=== PATIENT | female | born 1985 | race Two or more races ===

== ENCOUNTER 2025-02-22 08:57 | Inpatient (IN) | payer OTHER ==
[~2025-02-22] VITALS: Ht 160 cm; Wt 63.0 kg
--- NOTE | 2025-02-22 09:32 | NUR ---
PACIENTEN ALERTA Y ORIENTADA X 3. REFIERE DESDE EL JUEVES DOLOR DE ESPLADA BAJA, FUE TRATADA Y MEDICADA ELIAS INDCIA LUEGO COMENZO CON ARDOR Y FIEBRE AL COMENZAR ANTIBIOTICOS PARA TRATAR INFECCION.
[2025-02-22] MEDS ORDERED: CIPRO500 MG (09:34)
[2025-02-22] MEDS ORDERED: CEFTRIAXONE SODIUM 1,000 MG VIAL IV ONE (10:00)
[2025-02-22] MEDS ORDERED: KETOROLAC TROMETHAMINE 30 MG VIAL IU ONE (10:00)
[2025-02-22] MEDS ORDERED: FAMOTIDINE/PF 20 MG/2 ML VIAL IV ONE (10:00)
--- NOTE | 2025-02-22 10:20 | NUR ---
SE ORIENTA A PACIENTE SOBRE ORDEN MEDICA LA MISMA REFIERE ENTENDER Y ACEPTA.
[2025-02-22 10:37] LABS: ALT/SGPT 28.0 U/L (12-78); AST/SGOT 17.0 U/L (15-37); BILIRUBIN TOTAL 0.25 mg/dL (0.3-1.2); BUN CREA RATIO 7.0 (7.0-25.0); CREATININE SERUM 0.86 mg/dL (0.55-1.02); GFR 73.85; GLOBULINA 4.1 G/DL (2.4-3.5); GLUCOSE FASTING 148.0 mg/dL (65-100); OSMOLALITY SERUM 274.0 MOSM/KG (275-295)
[2025-02-22 10:58] LABS: BASO % 0.7 % (0.1-1.2); EOS # 0.01 (0.04-0.54); EOS % 0.1 % (0.7-7.0); LYMPH # 0.83 (1.18-3.74); LYMPH % 12.1 % (19.3-53.1); MEAN PLATELET VOLUME 10.70 fl (9.4-12.4); MONO # 0.58 (0.24-0.82); MONO % 8.4 % (4.7-12.5); NEUT # 5.38 (1.56-6.13); NEUT % 78.3 % (34.0-71.1); RED CELL DISTRIBUTION WIDTH 15.9 % (11.6-14.4)
[2025-02-22 12:17] LABS: URINE APPEARANCE Clear; URINE BILIRRUBIN Negative (NEGATIVE); URINE BLOOD Small; URINE COLOR Yellow; URINE GLUCOSE Negative (NEGATIVE); URINE KETONE 15 (NEGATIVE); URINE LEUKOCYTE Moderate; URINE NITRATE Negative; URINE PROTEIN 30 (NEGATIVE); URINE UROBILINOGEN 0.2 E.U./dl
[2025-02-22 12:22] LABS: URINE BACTERIA 691.2 uL (0.0-1933); URINE EPITHELIAL CELLS 70.7 uL (0.0-38.8); URINE RBC 81.3 uL (0.0-20.8); URINE WBC 104.9 uL (0.0-23.2)
[2025-02-22 13:03] LABS: TYPE CELLS SQUAMOUS; URINE CAST 1.02 uL (0.0-1.40)
[2025-02-22 13:04] LABS: URINE MUCUS SCANT
[2025-02-22] MEDS ORDERED: 0.9 % SODIUM CHLORIDE 1,000 ML IV SCH (20:15)
[2025-02-22] MEDS ORDERED: ONDANSETRON HCL 4 MG in 0.9 % SODIUM CHLORIDE 50 ML IV PRN (20:15)
[2025-02-22] MEDS ORDERED: KETOROLAC TROMETHAMINE 15 MG VIAL IU PRN (20:15)
[2025-02-22 20:48] VITALS: BP 91/61
[2025-02-22] MEDS ORDERED: POTASSIUM CHLORIDE 10 MEQ CAPSULE PO SCH (22:00)
[2025-02-22 22:17] VITALS: BP 82/53; O2SAT 98
[2025-02-23] MEDS ORDERED: ACETAMINOPHEN 325 MG TABLET PO SCH
[2025-02-23 03:40] VITALS: BP 91/52; O2SAT 100
[2025-02-23 08:26] VITALS: BP 90/60; O2SAT 98
[2025-02-23] MEDS ORDERED: CEFTRIAXONE SODIUM 2,000 MG in 0.9 % SODIUM CHLORIDE 100 ML IV SCH (09:00)
[2025-02-23] MEDS ORDERED: FAMOTIDINE/PF 20 MG/2 ML VIAL IV SCH (09:00)
[2025-02-23] MEDS ORDERED: ACETAMINOPHEN 500 MG GEL..CAP PO SCH (12:00)
[2025-02-23 17:05] VITALS: BP 98/56; O2SAT 96
[2025-02-23] MEDS ORDERED: SOD FERRIC GLUC COMPLX/SUCROSE 125 MG in 0.9 % SODIUM CHLORIDE 100 ML IV SCH (21:00)
[2025-02-24 03:15] VITALS: BP 88/59; O2SAT 100
[2025-02-24 06:41] LABS: BUN CREA RATIO 13.0 (7.0-25.0); CREATININE SERUM 0.6 mg/dL (0.55-1.02); GFR 111.88; GLUCOSE FASTING 88.0 mg/dL (65-100); OSMOLALITY SERUM 285.0 MOSM/KG (275-295)
[2025-02-24 09:43] VITALS: BP 94/63; O2SAT 97
[2025-02-24 17:53] VITALS: BP 101/62; O2SAT 98
[2025-02-24 19:10] LABS: ob POSITIVE (NEGATIVE)
[2025-02-24] MEDS ORDERED: ONDANSETRON HCL 2 MG/ML VIAL ONE (20:18)
[2025-02-25 01:22] VITALS: BP 97/59; O2SAT 97
[2025-02-25 08:48] VITALS: BP 90/61; O2SAT 99
[2025-02-25 18:44] VITALS: BP 101/62; O2SAT 100
[2025-02-26 02:15] VITALS: BP 90/55; O2SAT 94
[2025-02-26] MEDS ORDERED: CEFUROXIME AXETIL 500 MG TABLET PO SCH (09:00)
[2025-02-26 09:01] VITALS: BP 94/63; O2SAT 100
== END 2025-02-26 14:17 | disposition home or self-care (01) | DRG 690 ==
LOC: ER 08:57 → MEDI 20:09
PROVIDERS: General Practice; ADMIT Internal Medicine; ATTEND Internal Medicine
PROC: BW21YZZ Computerized Tomography (CT Scan) of Abdomen and Pelvis using Other Contrast (ICD-10-PCS; principal; 2025-02-22)
PROC: BT4JZZZ Ultrasonography of Kidneys and Bladder (ICD-10-PCS; 2025-02-24)
DX: N12 Tubulo-interstitial nephritis, not specified as acute or chronic (principal); N39.0 Urinary tract infection, site not specified; D50.0 Iron deficiency anemia secondary to blood loss (chronic)